=== PATIENT | male | born 1945 | race Caucasian/White ===

== ENCOUNTER 2022-06-19 15:21 | Emergency (ER) | payer MEDICARE ==
[~2022-06-19] VITALS: Ht 185.4 cm; Wt 90.0 kg
[2022-06-19] VITALS (11 sets, daily range): BP systolic 130–163; BP diastolic 66–86
[2022-06-19] MEDS ORDERED: NAPROXEN500 MG PO (17:16)
== END 2022-06-19 17:59 | disposition home or self-care (01) ==
LOC: ED 15:21
DX: S83.91XA Sprain of unspecified site of right knee, initial encounter (principal); X50.0XXA Overexertion from strenuous movement or load, initial encounter; Y93.89 Activity, other specified

== ENCOUNTER 2024-07-29 10:57 | Observation (INO) | payer MEDICARE ==
[~2024-07-29] VITALS: Ht 185.4 cm; Wt 80.3 kg
[2024-07-29] VITALS (28 sets, daily range): BP systolic 106–184; BP diastolic 47–87
[~2024-07-29 10:57] MED LIST: NAPROXEN500 MG PO
[2024-07-29 11:26] LABS: BASO% 0.6 % (0-3); EOS% 4.5 % (0-8); HEMATOCRIT 40.6 % (39.0-50.0); HEMOGLOBIN 13.6 g/dl (14.0-18.0); IMMATURE GRANULOCYTES 0.4 % (0.0-5.0); LYMPH% 18.7 % (15-41); MEAN CELL VOLUME 92.7 fL CALC (80.0-100.0); MEAN CORPUSCULAR HGB 31.1 pG CALC (26.0-32.0); MEAN CORPUSCULAR HGB CONC 33.5 g/dL CAL (32.0-36.0); MONO% 8.4 % (2-13); NEUT# 5.45 thou/uL (1.82-7.42); NEUT% 67.4 % (42-76); RED BLOOD COUNT 4.38 mill/uL (4.70-6.10); RED CELL DISTRI WIDTH 12.8 % (11.5-15.5)
[2024-07-29 11:43] LABS: ALBUMIN 4.6 g/dL (3.2-5.0); ALKALINE PHOSPHATASE 61 u/l (38-126); ANION GAP 12 (6-22 (CALC)); BILIRUBIN, TOTAL 0.6 mg/dL (0.2-1.3); BUN 10 mg/dL (8-23); BUN/CREATININE RATIO 14 (12-20 (CALC)); CALCULATED LDLCHOLESTEROL 90 mg/dL (62-129 (CALC)); CARBON DIOXIDE 27 mmol/l (22-30); CHLORIDE 102 mmol/l (95-108); CHOLESTEROL HDL RATIO 3.8 (<4.4 (CALC)); CREATININE 0.7 mg/dL (0.7-1.3); ESTIMATED GFR 95 ML/MIN (>=90 (CALC)); HDL CHOLESTEROL 46 mg/dL (39.0-59.0); POTASSIUM 4.1 mmol/l (3.5-5.1); SGOT/AST 25 u/l (19-48); SODIUM 137 mmol/l (137-146); TOTAL CHOLESTEROL 176 mg/dl (0-199); TOTAL PROTEIN 7.8 g/dL (6.3-8.2); TOTAL TRIGLYCERIDES 202 mg/dl (0-149); VLDL CHOLESTROL 40 mg/dl (0-38 (CALC))
[2024-07-29 11:44] LABS: PROTHROMBIN TIME 10.9 SECONDS (9.0-12.5)
[2024-07-29] MEDS ORDERED: PREGABALIN50 MG (13:45)
[2024-07-29] MEDS ORDERED: AMLOD/BENAZP1 CA4 (13:45)
[2024-07-29] MEDS ORDERED: DEXTROSE 250 ML IV PRN (14:05)
[2024-07-29] MEDS ORDERED: MAGNESIUM HYDROXIDE 30 ML UDC PO PRN (14:05)
[2024-07-29] MEDS ORDERED: ACETAMINOPHEN 325 MG/TAB PO PRN (14:05)
[2024-07-29] MEDS ORDERED: LABETALOL HCL 20 MG/ 4 ML CARTRG IV PRN (15:40)
[2024-07-29] MEDS ORDERED: CLOPIDOGREL BISULFATE 75 MG/TAB TAB PO SCH (16:00)
[2024-07-29] MEDS ORDERED: ASPIRIN 325 MG/TAB PO SCH (16:00)
[2024-07-29] MEDS ORDERED: ATORVASTATIN CALCIUM 40 MG/TAB PO SCH (21:00)
[2024-07-29] MEDS ORDERED: ENOXAPARIN SODIUM 40 MG/0.4 ML SYR SC SCH (21:00)
[2024-07-30] VITALS (25 sets, daily range): BP systolic 99–156; BP diastolic 46–80
[2024-07-30 05:37] LABS: BASO% 0.9 % (0-3); EOS% 5.1 % (0-8); HEMATOCRIT 36.4 % (39.0-50.0); HEMOGLOBIN 12.9 g/dl (14.0-18.0); IMMATURE GRANULOCYTES 0.3 % (0.0-5.0); LYMPH% 18.3 % (15-41); MEAN CELL VOLUME 91.5 fL CALC (80.0-100.0); MEAN CORPUSCULAR HGB 32.4 pG CALC (26.0-32.0); MEAN CORPUSCULAR HGB CONC 35.4 g/dL CAL (32.0-36.0); MONO% 8.9 % (2-13); NEUT# 4.91 thou/uL (1.82-7.42); NEUT% 66.5 % (42-76); RED BLOOD COUNT 3.98 mill/uL (4.70-6.10)
[2024-07-30 05:56] LABS: ALBUMIN 4.1 g/dL (3.2-5.0); BILIRUBIN, TOTAL 0.8 mg/dL (0.2-1.3); CREATININE 0.8 mg/dL (0.7-1.3); MAGNESIUM 1.8 mg/dL (1.6-2.3); POTASSIUM 4.3 mmol/l (3.5-5.1)
[2024-07-30 07:14] LABS: URINE BILIRUBIN - DIPSTICK Negative (NEGATIVE); URINE BLOOD DIPSTICK Negative (NEGATIVE); URINE GLUCOSE - DIPSTICK Negative (NEGATIVE); URINE KETONE Negative (NEGATIVE); URINE LEUK ESTERASE Negative (NEGATIVE); URINE NITRITE - DIPSTICK Negative (Negative); URINE PH 6.5 (4.5-8.0); URINE PROTEIN - DIPSTICK Negative (NEG-TRACE); URINE SPECIFIC GRAVITY 1.015; URINE UROBILINOGEN - DIPSTICK 0.2 E.U./dL (0.2)
[2024-07-30 07:20] LABS: URINE COLOR Yellow
[2024-07-30] MEDS ORDERED: ASPIRIN EC 81 MG/TAB PO SCH (09:00)
[2024-07-30] MEDS ORDERED: CLOPIDOGREL BISULFATE 75 MG/TAB TAB PO SCH (09:00)
[2024-07-30] MEDS ORDERED: amLODIPine BESYLATE 5 MG/TAB PO SCH (09:00)
[2024-07-30] MEDS ORDERED: ADLT ASA LOW81 MG PO (13:33)
[2024-07-30] MEDS ORDERED: PLAVIX75 MG PO (13:33)
[2024-07-30] MEDS ORDERED: ATORVASTATIN CA10 MG PO (13:34)
== END 2024-07-30 14:00 | disposition home or self-care (01) ==
LOC: ED 10:57 → ED-I 13:00 → ED 13:21 → ICU 13:22
PROVIDERS: Emergency Medicine; Nurse Practitioner Family; ADMIT Internal Medicine; ATTEND Internal Medicine
DX: G45.9 Transient cerebral ischemic attack, unspecified (principal); I10 Essential (primary) hypertension; E83.119 Hemochromatosis, unspecified
CPT/HCPCS: J1650; Q9967